=== PATIENT | female | born 1980 | race Caucasian/White ===

== ENCOUNTER → 2018-10-03 | Outpatient (CLI) | payer BC ==
[2018-10-03 08:49] LABS: Basophils # (auto) 0 uL; Basophils % (auto) 0.8 % (0.0-2.0); Eosinophils # (auto) 0 uL; Eosinophils % (auto) 0.7 % (0.0-7.0); Hematocrit 41.3 % (36.0-46.0); Hemoglobin 14.1 g/dL (12.2-16.2); Lymphocytes % (auto) 31.8 % (10.0-50.0); Mean Corpuscular Hemoglobin 33.4 pg (28.0-32.0); Mean Corpuscular Hgb Conc. 34.1 g/dL (32.0-36.0); Mean Corpuscular Volume 97.7 fL (80.0-100.0); Monocytes # (auto) 0.3 uL; Monocytes % (auto) 10.3 % (0.0-12.0); Neutrophils # (auto) 1.8 uL; Neutrophils % (auto) 56.4 % (37.0-80.0); Platelet Count (auto) 232 10^3/uL (140-450); Red Blood Cells 4.22 10^6/uL (4.0-5.20); Red Cell Distribution Width 13.1 % (11.8-14.3); White Blood Cell 3.2 10^3/uL (4.4-10.8)
[2018-10-03 09:16] LABS: Albumin 3.9 g/dL (3.4-5.0); Potassium 4.1 mmol/L (3.5-5.1)
[2018-10-03 09:22] LABS: BUN/Creatinine Ratio 27.5; Bilirubin, Total 0.5 mg/dL (0.2-1.0); Total Protein 7.1 g/dL (6.4-8.2)
== END | disposition home or self-care (01) ==
LOC: LAB 08:22
PROVIDERS: ATTEND Physician Assistant
DX: Z00.01 Encounter for general adult medical examination with abnormal findings (principal); G35 Multiple sclerosis; R53.83 Other fatigue
CPT/HCPCS: 36415; 80053; 80061; 85025

== ENCOUNTER → 2024-03-27 | Outpatient (CLI) | payer BC ==
[2024-03-27 07:45] LABS: Basophils # (auto) 0 10 ^3/uL (0-0.2); Basophils % (auto) 0.7 % (0.0-2.0); Eosinophils # (auto) 0 10 ^3/uL (0-0.8); Eosinophils % (auto) 0.5 % (0.0-7.0); Hematocrit 42.2 % (36.0-46.0); Lymphocytes # (auto) 1.2 10 ^3/uL (0.4-5.4); Lymphocytes % (auto) 22.2 % (10.0-50.0); Mean Corpuscular Hemoglobin 30.8 pg (28.0-32.0); Mean Corpuscular Hgb Conc. 33.2 g/dL (32.0-36.0); Monocytes # (auto) 0.5 10 ^3/uL (0-1.3); Monocytes % (auto) 8.9 % (0.0-12.0); Neutrophils # (auto) 3.7 10 ^3/uL (1.6-8.6); Neutrophils % (auto) 67.7 % (37.0-80.0); Nucleated Red Blood Cells % 0.2 %; Red Blood Cells 4.53 10^6/uL (4.0-5.20); White Blood Cell 5.5 10^3/uL (4.4-10.8)
[2024-03-27 08:27] LABS: Alanine Aminotransferase 37 U/L (7-40); Albumin 4.3 g/dL (3.2-4.8); Alkaline Phosphatase 65 U/L (46-116); Anion Gap 3 (5-15); Aspartate Aminotransferase 13 U/L (13-40); BUN/Creatinine Ratio 16.7 (10.0-20.0); Blood Urea Nitrogen 10 mg/dL (9-23); Calcium 9.3 mg/dL (8.5-10.1); Carbon Dioxide 30 mmol/L (20-30); Chloride 106 mmol/L (98-107); Cholesterol 150 mg/dL (< 200); Glucose 90 mg/dL (74-106); LDL Cholesterol 77 mg/dL (< 100); Potassium 4.1 mmol/L (3.5-5.1); Sodium 139 mmol/L (136-145); Triglycerides 74 mg/dL (< 150)
[2024-03-27 08:28] LABS: Bilirubin, Total 0.5 mg/dL (0.2-1.0); HDL Cholesterol 58 mg/dL (40-59); Total Protein 6.5 g/dL (5.7-8.2)
== END | disposition home or self-care (01) ==
LOC: LAB 07:33
PROVIDERS: ATTEND Nurse Practitioner Family
DX: G35 Multiple sclerosis (principal); E55.9 Vitamin D deficiency, unspecified
CPT/HCPCS: 36415; 80053; 80061; 82306; 84439; 84443; 85025